=== PATIENT | female | born 1990 | race Caucasian/White ===

== ENCOUNTER 2017-11-28 22:12 | Emergency (ER) | payer SELFPAY, OTHER | END 2017-11-28 23:12 | disposition left against medical advice (07) | LOC: FTE 22:12 | DX: Z53.21 Procedure and treatment not carried out due to patient leaving prior to being seen by health care provider (principal) ==

== ENCOUNTER 2018-04-25 22:33 | Inpatient (IN) | payer OTHER ==
[2018-04-25 23:38] LABS: ADD UMIC YES; UR ASCORBIC ACID 40 mg/dL (NEGATIVE); UR BILIRUBIN (Dip) NEGATIVE (NEGATIVE); UR BLOOD (Dip) NEGATIVE (NEGATIVE); UR CLARITY SLIGHTLY CLOUDY (CLEAR); UR COLOR YELLOW (YELLOW); UR GLUCOSE (Dip) NEGATIVE (NEGATIVE); UR KETONES (Dip) NEGATIVE (NEGATIVE); UR LEUKOCYTE ESTERASE (Dip) 1+ Leu/ul (NEGATIVE); UR NITRITE (Dip) NEGATIVE (NEGATIVE); UR RBC 1 /HPF (0-5); UR SPECIFIC GRAVITY (Dip) 1.023 (1.003-1.030); UR SQUAMOUS EPITHELIAL CELL FEW /HPF (FEW); UR TOTAL PROTEIN (Dip) NEGATIVE (NEGATIVE); UR UROBILINOGEN (Dip) NEGATIVE (NEGATIVE); UR WBC 4 /HPF (0-5)
[2018-04-26] MEDS ORDERED: AMPICILLIN 1 GM/NS (PMX) 50 ML IVPB (01:00)
[2018-04-26 01:17] LABS: ADD MAN DIFF? NO
[2018-04-26 01:21] LABS: WHITE BLOOD COUNT 12.9 10^3/ul (4.8-10.8)
[2018-04-26 01:21] LABS: BASOPHIL # 0.1 10^3/ul (0.0-0.1); BASOPHILS % 0.5 % (0.0-2.0); EOSINOPHILS # 0.2 10^3/ul (0.0-0.5); EOSINOPHILS % 1.2 % (0.0-7.0); HEMATOCRIT 32.4 % (37.0-47.0); HEMOGLOBIN 10.2 g/dl (12.0-16.0); LYMPHOCYTES % 15.7 % (15.0-51.0); MEAN CORPUSCULAR HEMOGLOBIN 28.1 pg (29.0-33.0); MEAN CORPUSCULAR HGB CONC 31.5 g/dl (32.0-37.0); MEAN CORPUSCULAR VOLUME 89.3 fl (82.0-101.0); MEAN PLATELET VOLUME 9.8 fl (7.4-10.4); MONOCYTE # 0.8 10^3/ul (0.3-0.9); MONOCYTES % 6.3 % (0.0-11.0); NEUTROPHIL # 9.6 10^3/ul (1.6-7.5); NEUTROPHILS % 74.1 % (39.0-77.0); PLATELET COUNT 359 10^3/UL (140-415); RED BLOOD COUNT 3.63 10^6/ul (4.20-5.40); RED CELL DISTRIBUTION WIDTH 14.1 % (11.5-14.5)
[2018-04-26] MEDS: BETAMET NA PHOS/AC(6 MG/ML) 2 ML INJ SYG IM (02:00)
[2018-04-26] MEDS: LACTATED RINGER'S 1,000 ML IV ×3 (02:00→20:15)
[2018-04-26] MEDS: AMPICILLIN 2 GM/NS (PMX) 100 ML IVPB (02:00)
[2018-04-26] MEDS: MAGNESIUM SULFATE 4 GM/100 ML 100 ML IV (02:07)
[2018-04-26 02:21] LABS: ALANINE AMINOTRANSFERASE 21 IU/L (13-69); ALBUMIN 3.4 g/dl (3.3-4.9); ALBUMIN/GLOBULIN RATIO 1.06; ALKALINE PHOSPHATASE 149 IU/L (42-121); ANION GAP 10 (5-13); ASPARTATE AMINO TRANSFERASE 22 IU/L (15-46); BILIRUBIN,INDIRECT 0.1 mg/dl (0-1.1); BILIRUBIN,TOTAL 0.1 mg/dl (0.2-1.3); BLOOD UREA NITROGEN 11 mg/dl (7-20); CALCIUM 8.8 mg/dl (8.4-10.2); CARBON DIOXIDE 22 mmol/L (21-31); CHLORIDE 108 mmol/L (97-110); Estimated GFR > 60 mL/min (>60); GLUCOSE 97 mg/dl (70-220); POTASSIUM 3.9 mmol/L (3.5-5.1); SODIUM 140 mmol/L (135-144); TOTAL PROTEIN 6.6 g/dl (6.1-8.1)
[2018-04-26] MEDS: MAGNESIUM SULFATE 20 GM/500 ML 500 ML IV ×2 (02:33→15:33)
[2018-04-26] MEDS: AMPICILLIN 1 GM/NS (PMX) 50 ML IVPB ×5 (05:43→21:14)
[2018-04-26 07:02] LABS: MAGNESIUM 4.8 mg/dl (1.7-2.5)
[2018-04-26] MEDS: PRENATAL VITAMIN PO (08:49)
[2018-04-26] MEDS: ACETAMINOPHEN 325 MG TAB PO (10:41)
[2018-04-26 12:43] LABS: MAGNESIUM 4.7 mg/dl (1.7-2.5)
[2018-04-26 18:36] LABS: MAGNESIUM 5.1 mg/dl (1.7-2.5)
[2018-04-27 01:33] LABS: MAGNESIUM 5.9 mg/dl (1.7-2.5)
[2018-04-27] MEDS: AMPICILLIN 1 GM/NS (PMX) 50 ML IVPB ×6 (01:44→21:03)
[2018-04-27] MEDS: MAGNESIUM SULFATE 20 GM/500 ML 500 ML IV ×3 (01:58→19:00)
[2018-04-27] MEDS: BETAMET NA PHOS/AC(6 MG/ML) 2 ML INJ SYG IM (01:59)
[2018-04-27] MEDS: LACTATED RINGER'S 1,000 ML IV ×3 (08:22→20:00)
[2018-04-27] MEDS: PRENATAL VITAMIN PO (08:46)
[2018-04-27 09:41] LABS: MAGNESIUM 5.8 mg/dl (1.7-2.5)
[2018-04-27 12:31] LABS: MAGNESIUM 5.7 mg/dl (1.7-2.5)
[2018-04-27 18:53] LABS: MAGNESIUM 5.7 mg/dl (1.7-2.5)
[2018-04-28] MEDS: LACTATED RINGER'S 1,000 ML IV (00:01)
[2018-04-28] MEDS: MAGNESIUM SULFATE 20 GM/500 ML 500 ML IV (00:01)
[2018-04-28] MEDS: AMPICILLIN 1 GM/NS (PMX) 50 ML IVPB ×3 (01:50→08:55)
[2018-04-28] MEDS: PRENATAL VITAMIN PO (08:55)
== END 2018-04-28 12:33 | disposition home or self-care (01) | DRG 832 ==
LOC: OBT 22:33 → L-D 22:35 → PP1 04-26 01:30
DX: O60.03 Preterm labor without delivery, third trimester (principal); O26.873 Cervical shortening, third trimester; Z3A.33 33 weeks gestation of pregnancy
CPT/HCPCS: 36415; 76815; 76817; 76818; 80053; 81001; 83735; 85025; 86850; 86900; 86901; 87081; 96360; 96372

== ENCOUNTER 2018-05-31 13:47 | Inpatient (IN) | payer OTHER ==
[2018-05-31] MEDS ORDERED: OXYTOCIN 30 UNITS/LR 500 ML IV ×2 (15:00)
[2018-05-31] MEDS ORDERED: CARBOPROST 250 MCG INJ IM (15:00)
[2018-05-31] MEDS ORDERED: MISOPROSTOL 200 MCG TAB PR (15:00)
[2018-05-31] MEDS ORDERED: IBUPROFEN 600 MG TAB PO (15:00)
[2018-05-31] MEDS ORDERED: BUTORPHANOL 2 MG INJ IV (15:00)
[2018-05-31] MEDS ORDERED: AMPICILLIN 2 GM/NS (PMX) 100 ML IV (15:00)
[2018-05-31] MEDS: LACTATED RINGER'S 1,000 ML IV ×2 (15:34→23:12)
[2018-05-31 16:16] LABS: ADD MAN DIFF? NO
[2018-05-31 16:21] LABS: WHITE BLOOD COUNT 11.8 10^3/ul (4.8-10.8)
[2018-05-31 16:21] LABS: BASOPHIL # 0.1 10^3/ul (0.0-0.1); BASOPHILS % 0.4 % (0.0-2.0); EOSINOPHILS # 0.1 10^3/ul (0.0-0.5); EOSINOPHILS % 0.5 % (0.0-7.0); HEMATOCRIT 36.2 % (37.0-47.0); HEMOGLOBIN 11.2 g/dl (12.0-16.0); LYMPHOCYTES # 1.5 10^3/ul (0.8-2.9); LYMPHOCYTES % 13.1 % (15.0-51.0); MEAN CORPUSCULAR HEMOGLOBIN 27.5 pg (29.0-33.0); MEAN CORPUSCULAR HGB CONC 30.9 g/dl (32.0-37.0); MEAN CORPUSCULAR VOLUME 88.7 fl (82.0-101.0); MEAN PLATELET VOLUME 9.5 fl (7.4-10.4); MONOCYTE # 0.6 10^3/ul (0.3-0.9); MONOCYTES % 5.4 % (0.0-11.0); NEUTROPHIL # 9.1 10^3/ul (1.6-7.5); NEUTROPHILS % 77.7 % (39.0-77.0); PLATELET COUNT 379 10^3/UL (140-415); RED BLOOD COUNT 4.08 10^6/ul (4.20-5.40); RED CELL DISTRIBUTION WIDTH 14.7 % (11.5-14.5)
[2018-05-31 16:40] LABS: INR 0.88; PT RATIO 0.9
[2018-05-31 16:41] LABS: PARTIAL THROMBOPLASTIN TIME 30.5 Sec (23.0-35.0)
[2018-05-31 17:17] LABS: HEPATITIS B SURFACE ANTIGEN NEGATIVE (NEGATIVE)
[2018-05-31] MEDS ORDERED: AMPICILLIN 1 GM/NS (PMX) 50 ML IV (19:00)
[2018-05-31 19:59] LABS: RAPID PLASMA REAGIN NONREACTIVE (NR)
[2018-06-01] MEDS: LACTATED RINGER'S 1,000 ML IV ×4 (07:44→22:42)
[2018-06-01] MEDS: OXYTOCIN 30 UNITS/LR 500 ML IV (08:53)
[2018-06-02] MEDS ORDERED: FENTAnyl 2MCG/ML-ROPIV 0.2% 100 ML (00:16)
[2018-06-02] MEDS ORDERED: MINERAL OIL LIGHT 10 ML VIAL ×2 (01:04→01:13)
[2018-06-02] MEDS: METHYLERGONOVINE 0.2 MG INJ IM (01:52)
[2018-06-02] MEDS: MINERAL OIL LIGHT 10 ML VIAL TOP (02:00)
[2018-06-02] MEDS: LIDOCAINE 1% (MPF) 30 ML INJ INJ (02:01)
[2018-06-02] MEDS: OXYTOCIN 30 UNITS/LR 500 ML IV (02:23)
[2018-06-02] MEDS ORDERED: HYDROCODONE/APAP (5/325) TAB PO (04:30)
[2018-06-02] MEDS ORDERED: CARBOPROST 250 MCG INJ IM (04:30)
[2018-06-02] MEDS ORDERED: ACETAMINOPHEN 325 MG TAB PO (04:30)
[2018-06-02] MEDS ORDERED: OXYTOCIN 30 UNITS/LR 500 ML IV (04:30)
[2018-06-02] MEDS ORDERED: METHYLERGONOVINE 0.2 MG INJ IM (04:30)
[2018-06-02] MEDS ORDERED: MISOPROSTOL 200 MCG TAB PR (04:30)
[2018-06-02] MEDS ORDERED: DIBUCAINE 1% 30 GM OINT TOP (04:30)
[2018-06-02] MEDS: IBUPROFEN 600 MG TAB PO ×3 (06:04→17:50)
[2018-06-02] MEDS: BENZOCAINE 20% 56 ML SPRAY TOP (06:05)
[2018-06-02] MEDS: WITCH HAZEL/GLYCERIN PAD PR (06:05)
[2018-06-02] MEDS: LACTATED RINGER'S 1,000 ML IV* (06:05)
[2018-06-02] MEDS: SENNA/DOCUSATE NA (8.6MG/50MG) TAB PO ×2 (10:33→22:07)
[2018-06-03] MEDS: IBUPROFEN 600 MG TAB PO ×4 (00:03→16:21)
[2018-06-03] MEDS: LACTATED RINGER'S 1,000 ML IV* ×3 (04:24→20:24)
[2018-06-03 07:52] LABS: ADD MAN DIFF? NO
[2018-06-03 07:57] LABS: WHITE BLOOD COUNT 14.4 10^3/ul (4.8-10.8)
[2018-06-03 07:57] LABS: BASOPHILS % 0.3 % (0.0-2.0); EOSINOPHILS # 0.1 10^3/ul (0.0-0.5); EOSINOPHILS % 0.8 % (0.0-7.0); HEMATOCRIT 29.4 % (37.0-47.0); HEMOGLOBIN 9.1 g/dl (12.0-16.0); LYMPHOCYTES # 2.3 10^3/ul (0.8-2.9); LYMPHOCYTES % 15.8 % (15.0-51.0); MEAN CORPUSCULAR HEMOGLOBIN 27.2 pg (29.0-33.0); MEAN CORPUSCULAR VOLUME 87.8 fl (82.0-101.0); MEAN PLATELET VOLUME 9.6 fl (7.4-10.4); MONOCYTE # 1.2 10^3/ul (0.3-0.9); MONOCYTES % 8.3 % (0.0-11.0); NEUTROPHIL # 10.6 10^3/ul (1.6-7.5); NEUTROPHILS % 73.8 % (39.0-77.0); PLATELET COUNT 333 10^3/UL (140-415); RED BLOOD COUNT 3.35 10^6/ul (4.20-5.40); RED CELL DISTRIBUTION WIDTH 15.3 % (11.5-14.5)
[2018-06-03] MEDS: SENNA/DOCUSATE NA (8.6MG/50MG) TAB PO ×2 (09:00→21:48)
[2018-06-04] MEDS: IBUPROFEN 600 MG TAB PO ×3 (00:04→12:00)
[2018-06-04] MEDS: LACTATED RINGER'S 1,000 ML IV* (04:24)
[2018-06-04] MEDS: SENNA/DOCUSATE NA (8.6MG/50MG) TAB PO (11:19)
[2018-06-04] MEDS: DIPHTH/TET/ACEL PERTUSS (ADULT) 0.5 ML VIAL IM* (11:23)
== END 2018-06-04 14:49 | disposition home or self-care (01) | DRG 807 ==
LOC: OBT 13:47 → PP1 06-02 04:07 → L-D 13:47 → OBT 14:52 → L-D 14:45
PROVIDERS: Obstetrics & Gynecology
PROC: 10E0XZZ Delivery of Products of Conception, External Approach (ICD-10-PCS; principal; 2018-06-02)
PROC: 0KQM0ZZ Repair Perineum Muscle, Open Approach (ICD-10-PCS; 2018-06-02)
DX: O70.1 Second degree perineal laceration during delivery (principal); Z37.0 Single live birth; Z3A.38 38 weeks gestation of pregnancy
CPT/HCPCS: 62319; 85025; 85610; 85730; 86592; 86850; 86900; 86901; 87340; 90715